=== PATIENT | female | born 1940 | race Caucasian/White ===

== ENCOUNTER → 2020-01-14 | Outpatient (CLI) | payer OTHER ==
[~2020-01-14] MED LIST: APHEN325 MG PO; ASPIRIN81 M2 PO; BENICAR40 MG PO; CALCIUM 500 +1 EAC5 PO; CLONIDINE HCL0.2 M2 PO; CLONIDINE0.1 PO; COLACE 100 MG100 MG PO; COREG25 MG PO; COZAAR 50 MG TA50 M2 PO; COZAAR100 MG PO; GLUCOPHAGE500 MG PO; GLYBURIDE 5 MG T5 M1 PO; HYDROCHLOROTHIA25 M1 PO; HYDROCODON-ACE1 EAC1 PO; HYDROCODON-ACE1 EAC5 PO; K-DUR10 MEQ PO; LEVOTHYROXIN0.025 MG PO; LIVALO2 MG PO; LOPRESSOR 50 MG50 M1 PO; LOPRESSOR50 PO; MOBIC15 MG PO; NITROSTAT0.4 MG SL; NORCO 5-325 TA1 EACH PO; PRILOSEC40 MG PO; REGLAN 10 MG TA10 MG PO; TRAMADOL 50 MG50 MG PO; ULORIC40 MG PO; XANAX 0.5 MG0.5 M1 PO; ZETIA10 MG PO
== END ==
LOC: SJCVCIMAG 12:00
PROVIDERS: ATTEND Internal Medicine Cardiovascular Disease
DX: I65.23 Occlusion and stenosis of bilateral carotid arteries (principal); I49.3 Ventricular premature depolarization; I25.10 Atherosclerotic heart disease of native coronary artery without angina pectoris; I10 Essential (primary) hypertension; E78.5 Hyperlipidemia, unspecified; E78.00 Pure hypercholesterolemia, unspecified; E11.9 Type 2 diabetes mellitus without complications; Z79.899 Other long term (current) drug therapy; Z95.5 Presence of coronary angioplasty implant and graft; Z79.82 Long term (current) use of aspirin

== ENCOUNTER → 2020-08-18 | Outpatient (CLI) | payer OTHER | LOC: SJCVCIMAG 10:14 | PROVIDERS: ATTEND Internal Medicine Cardiovascular Disease | DX: I25.10 Atherosclerotic heart disease of native coronary artery without angina pectoris (principal); E78.5 Hyperlipidemia, unspecified; I10 Essential (primary) hypertension; Z79.82 Long term (current) use of aspirin; Z79.899 Other long term (current) drug therapy ==

== ENCOUNTER → 2021-04-09 | Outpatient (CLI) | payer OTHER | LOC: SJCVC 10:35 | PROVIDERS: ATTEND Internal Medicine Cardiovascular Disease | DX: I25.10 Atherosclerotic heart disease of native coronary artery without angina pectoris (principal); I10 Essential (primary) hypertension; E78.00 Pure hypercholesterolemia, unspecified; E11.9 Type 2 diabetes mellitus without complications; I65.23 Occlusion and stenosis of bilateral carotid arteries; E78.5 Hyperlipidemia, unspecified; Z95.5 Presence of coronary angioplasty implant and graft; Z79.84 Long term (current) use of oral hypoglycemic drugs; Z79.82 Long term (current) use of aspirin; Z79.899 Other long term (current) drug therapy ==